=== PATIENT | female | born 1965 | race Caucasian/White ===

== ENCOUNTER → 2017-02-18 | Outpatient (CLI) | payer OTHER | LOC: CIMAGING 10:18 | PROVIDERS: ATTEND Family Medicine | DX: Z12.31 Encounter for screening mammogram for malignant neoplasm of breast (principal) | CPT/HCPCS: G0202 ==

== ENCOUNTER 2018-01-18 05:32 | Observation (INO) | payer OTHER ==
[2018-01-18] MEDS ORDERED: LR 1,000 ML IV ONE (05:36)
[2018-01-18] MEDS ORDERED: LIDOCAINE 1% 2 ML INJ ID PRN (05:36)
[2018-01-18] MEDS ORDERED: BUPIVACAINE/EPI 0.5% 30 ML SDV ONE (07:09)
[2018-01-18] MEDS ORDERED: ESTROGENS,CONJUGATED 30 GM CRTUBE VG ONE (07:10)
[2018-01-18] MEDS ORDERED: VASOPRESSIN 20 UNIT/ML VIAL ONE (07:10)
[2018-01-18] MEDS ORDERED: MIDAZOLAM 2 MG/2 ML VIAL ONE (07:15)
[2018-01-18] MEDS ORDERED: fentaNYL 100 MCG/2 ML INJ ONE ×3 (07:15→10:09)
[2018-01-18] MEDS ORDERED: PROPOFOL/EMULSION 500 MG/50 ML BOTTLE IV ONE (07:15)
[2018-01-18] MEDS ORDERED: ceFAZolin 2 GM/DEXTROSE 100 ML IV ONE (07:17)
--- NOTE | 2018-01-18 07:17 | PDGENHP ---
History & Physical Chief Complaint: Pelvic Organ Prolapse, SIMBA History of Present Illness: 52 yo with symptomatic pelvic organ prolapse - I met with her to discuss treatment options. She has tried and failed pelvic PT and declines pessary trial. Discussed options - wants surgery. Pertinent Past, Social, Family History: Non-pertinent. Relevant Physical Exam: NAD, RRR, LCTAB. Assessment & Plan Assessment: Preop: TVH, USLS, A/P repair, TVT sling, cysto. - Routine preop orders, Type & Screen. - Weight-based Ancef, 200mg PO Pyridium preop. - Will be staying overnight. - Plan is to evaluate but leave ovaries. CARRIE
[2018-01-18] MEDS: PHENAZOPYRIDINE HCL 200 MG TAB PO SCH ×4 (07:24→22:29)
[2018-01-18] MEDS ORDERED: DEXAMETHASONE 4 MG/ML VIAL ONE (07:27)
[2018-01-18] MEDS ORDERED: SUGAMMADEX SODIUM 200 MG/2 ML VIAL IVP ONE (07:27)
[2018-01-18] MEDS ORDERED: RANITIDINE 50 MG/2 ML VIAL ONE (07:27)
[2018-01-18] MEDS ORDERED: KETOROLAC 30 MG/1 ML SDV ONE (07:27)
[2018-01-18] MEDS ORDERED: ONDANSETRON 4 MG/2 ML VIAL ONE (07:27)
[2018-01-18] MEDS ORDERED: ROCURONIUM 50 MG/5 ML VIAL ONE ×2 (07:27→08:08)
[2018-01-18] MEDS ORDERED: PROPOFOL 200 MG/20 ML VIAL ONE ×2 (07:28→09:01)
--- NOTE | 2018-01-18 07:57 | PDANEPAE ---
ANE Past Medical History - Cardiovascular History Hx Hypertension: No Hx Arrhythmias: No Hx Chest Pain: No Hx Coronary Artery / Peripheral Vascular Disease: No Hx CHF / Valvular Disease: No Hx Palpitations: No - Pulmonary History Hx COPD: No Hx Asthma/Reactive Airway Disease: No Hx Recent Upper Respiratory Infection: No Hx Oxygen in Use at Home: No Hx Sleep Apnea: No Sleep Apnea Screening Result - Last Documented: Negative - Neurologic History Hx Cerebrovascular Accident: No Hx Seizures: No Hx Dementia: No - Endocrine History Hx Diabetes: No - Renal History Hx Renal Disorders: No Renal History Comment: BLADDER PROLAPSE - Neurological & Psychiatric Hx Hx Neurological and Psychiatric Disorders: Yes Neurological / Psychiatric History Comment: ANXIETY - Cancer History Hx Cancer: No - Congenital Disorder History Hx Congenital Disorders: No - GI History Hx Gastrointestinal Disorders: Yes Gastrointestinal History Comment: COLONOSCOPY - POLYP REMOVED. ONE DIVERTICULA - Other Health History Other Health History: KERATOSIS PILARAS. CHOLINERGIC URTICARIA - Chronic Pain History Chronic Pain: Yes (PLANTAR FASCIITIS) - Surgical History Prior Surgeries: FIBROID REMOVED. WISDOM TEETH ANE Review of Systems Review of Systems: - Exercise capacity METS (RN): 5 METS ANE Patient History - Allergies Allergies/Adverse Reactions: No Known Allergies Allergy (Unverified 05/27/09 09:34) - Home Medications Home Medications: Aspirin 01/13/18 [Last Taken 01/12/18] Gabapentin 01/13/18 [Last Taken 01/17/18 21:00] Herbals/Supplements -Info Only 01/13/18 [Last Taken 01/12/18] Lamictal 01/13/18 [Last Taken 01/17/18 21:00] Vistaril 01/13/18 [Last Taken 01/15/18] - NPO status NPO Since - Liquids (Date): 01/18/18 NPO Since - Liquids (Time): 03:00 NPO Since - Solids (Date): 01/17/18 NPO Since - Solids (Time): 19:00 - Smoking Hx Smoking Status: Never smoked - Family Anes Hx Family Hx Anesthesia Complications: NEG ANE Labs/Vital Signs - Vital Signs Blood Pressure: 136/71 Heart Rate: 53 Respiratory Rate: 16 O2 Sat (%): 98 Height: 167.64 cm Weight: 61.235 kg ANE Physical Exam - Airway Neck exam: FROM Mallampati Score: Class 1 Mouth exam: normal dental/mouth exam - Pulmonary Pulmonary: no respiratory distress, no rales or rhonchi, clear to auscultation - Cardiovascular Cardiovascular: regular rate and rhythym, no murmur, rub, or gallop - ASA Status ASA Status: II ANE Anesthesia Plan Anesthesia Plan: general endotracheal anesthesia
[2018-01-18] MEDS ORDERED: NALOXONE HCL 0.4 MG/ML INJ IVP PRN (07:59)
[2018-01-18] MEDS ORDERED: DEXMEDETOMIDINE HCL 200 MCG in NS 50 ML IV ONE (08:00)
[2018-01-18] MEDS ORDERED: ALBUTEROL 3 ML DEYVIAL IH PRN (08:06)
[2018-01-18] MEDS ORDERED: LR 500 ML IV PRN (08:06)
[2018-01-18] MEDS ORDERED: ONDANSETRON 4 MG/2 ML VIAL IVP PRN ×2 (08:06→10:16)
[2018-01-18] MEDS ORDERED: DEXAMETHASONE 4 MG/ML VIAL IVP PRN (08:06)
[2018-01-18] MEDS ORDERED: CALCIUM CHLORIDE 1 GM/10 ML INJ ONE (09:22)
[2018-01-18] MEDS: fentaNYL 100 MCG/2 ML INJ IVP PRN ×2 (10:12→10:45)
--- NOTE | 2018-01-18 10:13 | POSTOPPROG ---
Post Op Note Date of Operation: 01/18/18 Surgeon: Steve Callaway Fitness And Wellness Manager: ARLENE Jefferson Anesthesia: GET(General Endotracheal) Pre-op Diagnosis: Pelvic organ prolapse, Stress Urinary Incontinence Post-op Diagnosis: Same Procedure: TVH, USLS, Ant Repair, TVT, cysto Findings: Stage II/III cystocele, Stage II uterine prolapse, Stage I rectocele Inf/Abcess present in the surg proc area at time of surgery?: No EBL: Minimal (50cc) Complications: None Specimen(s): Uterus and cervix
[2018-01-18] MEDS ORDERED: KETOROLAC 30 MG/1 ML SDV IVP ONE (10:16)
[2018-01-18] MEDS ORDERED: LACTULOSE 20 GM/30 ML UDCUP PO PRN (10:16)
[2018-01-18] MEDS ORDERED: ONDANSETRON DISINTEGRATING 4 MG TAB PO PRN (10:16)
[2018-01-18] MEDS ORDERED: MAGNESIUM HYDROXIDE 30 ML UDCUP PO PRN (10:16)
[2018-01-18] MEDS ORDERED: POLYETHYLENE GLYCOL 3350 17 GM PKT PO PRN (10:16)
[2018-01-18] MEDS ORDERED: BISACODYL 10 MG SUPP PR PRN (10:16)
[2018-01-18] MEDS ORDERED: ZOLPIDEM TARTRATE 5 MG TAB PO PRN (10:16)
--- NOTE | 2018-01-18 10:16 | SUROPNOTE ---
[facility] Operative Report - Surgery Date of Operation: 01/18/18 Surgeon: Steve Callaway Alcoholic Counselor: ARLENE Jefferson Anesthesia: GET(General Endotracheal) Pre-op Diagnosis: Pelvic organ prolapse, Stress Urinary Incontinence Post-op Diagnosis: Same Procedure: TVH, USLS, Ant Repair, TVT, cysto Findings: NEFG, atrophic. Stage II/III cystocele, Stage II uterine prolapse, Stage I rectocele. Intraoperatively - normal small ovaries bilaterally, normal tubes. Cystoscopically, normal bladder bilateral UO's with strong urethral jets. Inf/Abcess present in the surg proc area at time of surgery?: No EBL: Minimal (50cc) Complications: None Specimen(s): Uterus and cervix Technique: After informed consent was reviewed with the patient, she was taken to the operating room, where time-out was performed confirming correct patient and planned procedures. Sequential compression devices were applied to the patients lower extremities. General anesthesia was induced without issue. The patient was placed in high lithotomy position with her legs in candy cane stirrups. Care was taken to cushion all potential pressure areas and position the patient an an ergonomically-neutral position. An examination under anesthesia was performed with the findings noted above. She was prepped and draped in the usual sterile fashion. A nj catheter was placed along with a [place] retractor. Moving to the hysterectomy, we first grasped the cervix was grasped with two single-tooth tenacula. Dilute vasopressing (20 units in 100mL injectable saline) infiltrated circumferentially around the cervix. A scalpel was used to incise the cervix circumferentially at the cervico-vaginal junction down to the level of the pubocervical fascia. Attention was first turned anteriorly. The vesico- uterine serosa was dissected carefully with metzenbaum scissors, until the anterior culdesac was entered easily without issue. The anterior Giltner was replaced with right angle retractor to take pressure off the bladder. The posterior peritoneum was clearly identified and entered sharply with Saldivar scissors without issue. Ellyn clamps were used to clamp, transect, and suture ligate the uterosacral ligaments bilaterally using 0 Vicryl suture. Using Ellyn clamps, successive bites were taken to clamp, transect and suture ligate the cardinal ligament complex, the uterine vessels, and the broad ligament up to the level of the utero-ovarian ligaments. The utero-ovarian ligaments were clamped, transected, and suture ligated, and the uterine specimen was handed off the field. The adnexal pedicles were then deviated to the midline so that the adnexa could be visualized. Ovaries and tubes were visualized and were normal to palpation, thus they were left in place. Excellent hemostasis was noted and tags on pedicles were cut. We then proceeded with uterosacral ligament suspension. The patient was placed in moderate Trendelenburg and a tagged, moist laparotomy sponge was used to pack away the bowels and visualization high into the pelvis was accomplished using handheld malleable retractors. I palpated the ligament and identified a location as high as technically safe and feasible to anchor our sutures. This was approximately 1cm cephalad of the sacral spines in the end. A curved Allis clamp was placed on the ligament at that level and two separate sutures, of 2-0 PDS, were placed through the ligament. These sutures were left tagged on the field and the identical procedure was performed on the patient's right, also tagging the sutures on the sterile field for attachment to the cuff later. Attention was then turned to the anterior repair. Two Allis clamps were placed at the level of the vaginal apex/cuff and a third at distal terminus of the cystocele bulge. Hydrodissection was performed with dilute vasopressin. The vaginal epithelium was dissected off of the underlying pubocervical tissue and underlying bladder using [place] scissors and then a longitudinal incision was made in the vaginal mucosa exposing the underlying cystocele. The edges of the vaginal epithelium were grasped bilaterally with Allis [place] clamps. The epithelium was dissected off the underlying fibromuscular layer with a combination of blunt and sharp dissection. A midline plication was performed with ease using multiple interrupted 2-0 PDS interrupted sutures. The vaginal epithelium was trimmed and closed with a 2-0 Vicryl in a running, locked fashion. Excellent reduction of the prolapse bulge was noted. At this point we brought our vault suspension sutures through the corners of the still-unclosed vaginal cuff and then they were again tagged aside on the field. We then proceeded to close the vaginal cuff with interrupted figure of eight sutures of 0-vicryl. At this point we carefully tied down each of the suspension sutures - suspending the now-closed vaginal cuff high into the pelvis with an excellent anatomic result ultimately. Total vaginal length of 7cm with 2.5cm of width at the introitus. After our apex was suspended there was no significant rectocele to be repaired, and introitus non gaping - did not require perineorrhaphy. The last step of our procedure was placement of the TVT sling. Puncture sites were marked on the patients abdomen approximately 2cm lateral of the midline bilaterally just above the symphysis. Tracts were hydrodissected from above using injectable saline and the skin was punctured with a 11 blade scalpel. A first stab incision was felt to the be too caudad on the patient's right so a second incision was made. Following this attention was turned to the vagina where an area approximately 1cm proximal to the external urethral meatus was identified on the anterior vaginal wall and infiltrated with local anesthetic. The mucosa was grasped with opal clamps and the skin opened with a scalpel. [place] scissors were used to develop tracts back towards the pubic bone bilaterally. At this point the [employer] Fit TVT sling was prepared the trocars delivered behind the pubic bone up and through our planned skin incisions on both sides without apparent complication. At this point we looked with cystoscopy and confirmed that there were no trocar injuries to the urethra or bladder, as well as no suture injuries from earlier parts of our operation. We also visualized strong ureteral jets from both UO's assisted with Pyridium-stained orange urine. At this point we tensioned the sling using a pair of Saldivar scissors in a tension-free fashion and the sling was trimmed. The skin was closed over the sling using a running suture of 2-0 vicryl. To conclude the we replaced her nj catheter. Sponge, lap, needle, and instrument counts were announced as correct x 2. The patient tolerated the procedure well. She was extubated and transported to the PACU in stable condition. I was scrubbed and present for the entire procedure.
[2018-01-18] MEDS ORDERED: D5W LR 1,000 ML IV SCH (10:30)
--- NOTE | 2018-01-18 10:37 | POSTANESTH ---
Post Anesthetic Evaluation Cardiovascular Status: Normal, Stable, Similar to Pre-Op Cond Respiratory Status: Normal, Stable, Similar to Pre-op Cond. Level of Consciousness/Mental Status: Unconscious Pain Control: Adequate, Prn Tx Ordered Nausea/Vomiting Control: Adequate, Prn Tx Ordered Complications Possibly Related to Anesthesia: None Noted
[2018-01-18] MEDS: KETOROLAC 30 MG/1 ML SDV IVP SCH ×2 (13:44→20:17)
[2018-01-18] MEDS ORDERED: oxyCODONE IR 5 MG TAB PO PRN (13:59)
[2018-01-18] MEDS ORDERED: IBUPROFEN 600 MG TAB PO SCH (14:00)
[2018-01-18] MEDS: PROMETHAZINE HCL 25 MG/ML INJ IVP PRN ×2 (14:18→19:02)
[2018-01-18] MEDS: ACETAMINOPHEN 500 MG TAB PO SCH ×2 (14:18→22:14)
[2018-01-19] MEDS: KETOROLAC 30 MG/1 ML SDV IVP SCH ×2 (02:17→08:50)
[2018-01-19] MEDS: SENNOSIDES/DOCUSATE SODIUM TAB PO SCH ×2 (03:18→08:49)
[2018-01-19] MEDS: ACETAMINOPHEN 500 MG TAB PO SCH (06:11)
[2018-01-19 06:53] LABS: PLATELET COUNT 202 10^3/uL (150-400)
[2018-01-19 08:02] VITALS: BP 114/68
[2018-01-19] MEDS: PHENAZOPYRIDINE HCL 200 MG TAB PO SCH (08:49)
[2018-01-19] MEDS ORDERED: ENOXAPARIN 40 MG/0.4 ML SYR SC SCH (09:00)
--- NOTE | 2018-01-19 12:25 | SOAPPROG ---
NIKKI Progress Note Assessment/Plan: Assessment: Plan: Objective: Vital Signs Temp Pulse Resp BP Pulse Ox 36.9 C 61 16 114/68 97 01/19/18 08:00 01/19/18 08:00 01/19/18 08:00 01/19/18 08:00 01/19/18 08:00 Laboratory Results 01/19/18 06:45 01/18/18 01/19/18 01/20/18 05:59 05:59 05:59 Intake Total 3499 Output Total 4000 1150 Balance -117 -8795
[2018-01-19] MEDS ORDERED: IBUPROFEN 600 MG TAB PO SCH (16:00)
== END 2018-01-19 12:30 | disposition home or self-care (01) ==
LOC: F3E 05:32 → FOB 11:30
PROVIDERS: ADMIT Obstetrics & Gynecology; ATTEND Obstetrics & Gynecology
PROC: 0UT90ZZ Resection of Uterus, Open Approach (ICD-10-PCS; principal; 2018-01-18 07:15)
PROC: 0US Female Reproductive System, Reposition (ICD-10-PCS; principal; 2018-01-18 07:15)
DX: N81.2 Incomplete uterovaginal prolapse (principal); N39.3 Stress incontinence (female) (male)
CPT/HCPCS: 57260; 58260; G0378; C1771; J0690; J1100; J1650; J1885; J2250; J2270; J2405; J2550; J2704; J2780; J3010